=== PATIENT | female | born 1990 | race Caucasian/White ===

== ENCOUNTER 2019-02-11 08:48 | Observation (INO) ==
[2019-02-11] MEDS ORDERED: *HR* LORazepam 0.5 MG TABLET PO ONE (09:09)
--- NOTE | 2019-02-11 09:13 | Emergency Department Note ---
Disposition Clinical Impression: Chest pain at rest Syncopal episodes Qualifiers: Syncope type: unspecified Qualified Code(s): R55 - Syncope and collapse Disposition: Admitted As Inpatient Referrals: NONE,PCP [Primary Care Provider] - Forms: ED Satisfaction Letter General Adult HPI - General Chief complaint: ED Chest Pain Stated complaint: Chest Pain Time Seen by Provider: 02/11/19 09:09 Source: patient Limitations: no limitations Nursing Notes Reviewed: Yes Vital Signs Reviewed: Yes - History of Present Illness HPI Narrative: 28-year-old female presents with chest pain. Patient stated it was the intermittent sharp pain in middle of the chest radiated to left shoulder for a week. It is associate with shortness breath, numbness in face and feet, dizziness. Patient reported 3 episodes of syncope in the past week. Patient stated the chest pain lasted from 10 minutes to one hour variously. Patient has a history of hypertension and anxiety. She is not taking any medication at this time. No family history of cardiac of early . Patient smokes cigarettes 1 pack a day for 15 years. Not on oral control. No history of blood clot. Onset (ago): week(s) (1) Location: chest Radiation: non-radiation Pain Scale: 8 - Related Data Home Medications Medication Instructions Recorded Confirmed Aspirin [Adult Aspirin] 81 mg PO DAILY 02/11/19 02/11/19 Allergies Allergy/AdvReac Type Severity Reaction Status Date / Time codeine AdvReac Vomiting Verified 10/26/18 13:56 Sulfa (Sulfonamide AdvReac See Verified 10/26/18 13:56 Antibiotics) Comments Constitutional: Denies: fever, chills Eyes: Denies: eye pain ENT ED: Denies: ear pain Cardiovascular: Reports: chest pain Respiratory: Denies: cough Gastrointestinal: Denies: abdominal pain Genitourinary: Denies: urgency Musculoskeletal: Denies: back pain Integumentary: Denies: rash Neurological: Denies: headache Psychiatric: Denies: anxiety Endocrine: Denies: fatigue Hematological/Lymphatic: Denies: easy bleeding Allergic/Immunologic: Denies: facial swelling Past Medical History - Past Medical History Medical history: Reports: non-contributory - Social History Smoking Status: Current every day smoker Smokeless Tobacco Status: No Alcohol use: Reports: none Drug use: Reports: none Physical Exam - General Limitations: no limitations General appearance: alert, in no apparent distress - Head Head exam: atraumatic - Eye Eye exam: Present: normal appearance - ENT ENT exam: normal exam - Neck Neck exam: Present: normal inspection - Chest Chest inspection: Present: normal inspection, symmetric chest wall rise, tenderness (sternal area tender to palpation) - Respiratory Respiratory exam: Present: normal lung sounds bilaterally. Absent: respiratory distress, wheezes - Cardiovascular Cardiovascular exam: Present: regular rate - Abdominal Exam Abdominal exam: Present: soft, Non-Tender - Extremities Exam Extremities exam: Present: normal inspection, full ROM. Absent: tenderness - Back Exam Back exam: Present: normal inspection, full ROM. Absent: tenderness - Neurological Exam Neurological exam: Present: alert, oriented X3, CN II-XII intact, normal gait. Absent: motor sensory deficit - Psychiatric Psychiatric exam: Present: normal affect, normal mood - Skin Skin exam: Present: warm, intact Course Vital Signs Temperature 97.6 F 02/11/19 08:52 Pulse Rate 84 02/11/19 08:52 Respiratory Rate 18 02/11/19 08:52 Blood Pressure 127/85 02/11/19 08:52 O2 Sat by Pulse Oximetry 100 02/11/19 08:52 Temperature 97.6 F 02/11/19 08:52 Pulse Rate 86 02/11/19 10:48 Respiratory Rate 16 02/11/19 10:48 Blood Pressure 119/82 02/11/19 10:48 O2 Sat by Pulse Oximetry 98 02/11/19 10:48 Oxygen Delivery Oxygen Delivery Room Air Medical Decision Making - [facility] Narrative Medical decision making narrative: 28 year old female presents with chest pain and syncope. Pt reported intermittent sharp pain in middle of chest for a week. Associate with shortness of breath, numbness of face and feet, and dizziness. Pt reported three syncope episodes. no family history of cardiac early . No history of blood clot. Labs: negative troponin, BNP and d-dimer. EKG normal. But Nurse caught transit V-tach in monitor before pt's name is in system. Impression: chest pain and syncope. Dr. Wallace has seen the patient and agrees to admit patient for observation. 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 - Lab Data Lab results reviewed: Yes I reviewed the patient's lab results. Result diagrams: 02/11/19 09:31 02/11/19 09:31 Lab Results 02/11/19 02/11/1902/11/19 Range/Units 09:31 09:31 09:31 WBC 7.9 (4.3-11.1) K/mcL RBC 5.05 H (3.82-4.97) M/mcL Hgb 15.3 (11.5-15.4) g/dL Hct 43.5 (35.3-44.9) % MCV 86.1 (83.0-100.0) fL MCH 30.3 (28.0-33.3) pg MCHC 35.2 (31.6-35.5) g/dL RDW 12.4 (11.5-14.5) % Plt Count 255 (140-400) K/mcL MPV 10.2 (9.4-12.4) fL Immature Gran % 0.4 (0-4) % Seg Neutrophils % 52.2 % Lymphocytes % 39.1 % Monocytes % 6.3 % Eosinophils % 1.5 % Basophils % 0.5 % Neutrophils # 4.1 (1.6-8.9) K/mcL Lymphocytes # 3.1 (0.6-4.6) K/mcL Monocytes # 0.5 (0.0-1.3) K/mcL Eosinophils # 0.1 (0.0-0.6) K/mcL Basophils # 0.0 (0.0-0.2) K/mcL PT 11.4 (9.4-12.1) Seconds INR 1.0 D-Dimer 291 (0-500) ng/mLFEU Sodium 137 (136-145) mEq/L Potassium 3.4 L (3.5-5.1) mEq/L Chloride 105 (98-107) mEq/L Carbon Dioxide 21 L (23-29) mEq/L BUN 8 (6-20) mg/dL Creatinine 0.63 (0.60-1.20) mg/dL Est GFR ( Amer) > 60 (> 60) Est GFR (Non-Af Amer) > 60 (> 60) BUN/Creatinine Ratio 13 (6-26) Glucose 98 (70-105) mg/dL Calculated Osmolality 282 (280-300) Calcium 9.8 (8.6-10.3) mg/dL Troponin I < 0.03 (< 0.04) ng/mL B-Natriuretic Peptide (Less than 100) pg/mL Urine Color (Yellow) Urine Clarity (Clear) Urine pH (5.0-8.0) pH Units Ur Specific [place] (1.010-1.025) Urine Protein (Neg-Trace) mg/dL Urine Glucose (UA) (Normal) mg/dL Urine Ketones (Negative) mg/dL Urine Blood (Negative) Urine Nitrite (Negative) Urine Bilirubin (Negative) Urine Urobilinogen (Normal) mg/dL Ur Leukocyte Esterase (Negative) Urine Microscopic RBC (0-3) per hpf Urine Microscopic WBC (0-3) per hpf Ur Squamous Epith Cells (None-Few) per lpf Urine Bacteria (None-Few) per hpf Hyaline Casts (None-Few) per lpf Ur Culture Indicated? (NO) Urine Test (Negative) Urine Opiates Screen (Ladqoj=798) ng/mL Ur Barbiturates Screen (Gumvcc=131) ng/mL Ur Phencyclidine Scrn (Cutoff=25) ng/mL Ur Amphetamines Screen (Ljzspj=9655) ng/mL U Benzodiazepines Scrn (Htavza=161) ng/mL Urine Cocaine Screen (Cutoff= 300) ng/mL U Marijuana (THC) Screen (Cutoff = 50) ng/mL Ur Drug Screen Interp 02/11/19 02/11/19 02/11/19 Range/Units 09:31 10:27 10:27 WBC (4.3-11.1) K/mcL RBC (3.82-4.97) M/mcL Hgb (11.5-15.4) g/dL Hct (35.3-44.9) % MCV (83.0-100.0) fL MCH (28.0-33.3) pg MCHC (31.6-35.5) g/dL RDW (11.5-14.5) % Plt Count (140-400) K/mcL MPV (9.4-12.4) fL Immature Gran % (0-4) % Seg Neutrophils % % Lymphocytes % % Monocytes % % Eosinophils % % Basophils % % Neutrophils # (1.6-8.9) K/mcL Lymphocytes # (0.6-4.6) K/mcL Monocytes # (0.0-1.3) K/mcL Eosinophils # (0.0-0.6) K/mcL Basophils # (0.0-0.2) K/mcL PT (9.4-12.1) Seconds INR D-Dimer (0-500) ng/mLFEU Sodium (136-145) mEq/L Potassium (3.5-5.1) mEq/L Chloride (98-107) mEq/L Carbon Dioxide (23-29) mEq/L BUN (6-20) mg/dL Creatinine (0.60-1.20) mg/dL Est GFR ( Amer) (> 60) Est GFR (Non-Af Amer) (> 60) BUN/Creatinine Ratio (6-26) Glucose (70-105) mg/dL Calculated Osmolality (280-300) Calcium (8.6-10.3) mg/dL Troponin I (< 0.04) ng/mL B-Natriuretic Peptide 22 (Less than 100) pg/mL Urine Color Yellow (Yellow) Urine Clarity Cloudy A (Clear) Urine pH 7.0 (5.0-8.0) pH Units Ur Specific [place] < 1.005 L (1.010-1.025) Urine Protein Negative (Neg-Trace) mg/dL Urine Glucose (UA) Normal (Normal) mg/dL Urine Ketones Negative (Negative) mg/dL Urine Blood Negative (Negative) Urine Nitrite Negative (Negative) Urine Bilirubin Negative (Negative) Urine Urobilinogen Normal (Normal) mg/dL Ur Leukocyte Esterase Negative (Negative) Urine Microscopic RBC 0-3 (0-3) per hpf Urine Microscopic WBC 0-3 (0-3) per hpf Ur Squamous Epith Cells Many H (None-Few) per lpf Urine Bacteria None Seen (None-Few) per hpf Hyaline Casts None Seen (None-Few) per lpf Ur Culture Indicated? NO (NO) Urine Test (Negative) Urine Opiates Screen Negative (Hpzwdw=693) ng/mL Ur Barbiturates Screen Negative (Znjkff=502) ng/mL Ur Phencyclidine Scrn Negative (Cutoff=25) ng/mL Ur Amphetamines Screen Negative (Yemkvp=8457) ng/mL U Benzodiazepines Scrn Negative (Fncpqu=569) ng/mL Urine Cocaine Screen Negative (Cutoff= 300) ng/mL U Marijuana (THC) Screen Negative (Cutoff = 50) ng/mL Ur Drug Screen Interp See Below 02/11/19 Range/Units 10:27 WBC (4.3-11.1) K/mcL RBC (3.82-4.97) M/mcL Hgb (11.5-15.4) g/dL Hct (35.3-44.9) % MCV (83.0-100.0) fL MCH (28.0-33.3) pg MCHC (31.6-35.5) g/dL RDW (11.5-14.5) % Plt Count (140-400) K/mcL MPV (9.4-12.4) fL Immature Gran % (0-4) % Seg Neutrophils % % Lymphocytes % % Monocytes % % Eosinophils % % Basophils % % Neutrophils # (1.6-8.9) K/mcL Lymphocytes # (0.6-4.6) K/mcL Monocytes # (0.0-1.3) K/mcL Eosinophils # (0.0-0.6) K/mcL Basophils # (0.0-0.2) K/mcL PT (9.4-12.1) Seconds INR D-Dimer (0-500) ng/mLFEU Sodium (136-145) mEq/L Potassium (3.5-5.1) mEq/L Chloride (98-107) mEq/L Carbon Dioxide (23-29) mEq/L BUN (6-20) mg/dL Creatinine (0.60-1.20) mg/dL Est GFR ( Amer) (> 60) Est GFR (Non-Af Amer) (> 60) BUN/Creatinine Ratio (6-26) Glucose (70-105) mg/dL Calculated Osmolality (280-300) Calcium (8.6-10.3) mg/dL Troponin I (< 0.04) ng/mL B-Natriuretic Peptide (Less than 100) pg/mL Urine Color (Yellow) Urine Clarity (Clear) Urine pH (5.0-8.0) pH Units Ur Specific [place] (1.010-1.025) Urine Protein (Neg-Trace) mg/dL Urine Glucose (UA) (Normal) mg/dL Urine Ketones (Negative) mg/dL Urine Blood (Negative) Urine Nitrite (Negative) Urine Bilirubin (Negative) Urine Urobilinogen (Normal) mg/dL Ur Leukocyte Esterase (Negative) Urine Microscopic RBC (0-3) per hpf Urine Microscopic WBC (0-3) per hpf Ur Squamous Epith Cells (None-Few) per lpf Urine Bacteria (None-Few) per hpf Hyaline Casts (None-Few) per lpf Ur Culture Indicated? (NO) Urine Test Negative (Negative) Urine Opiates Screen (Ylniad=709) ng/mL Ur Barbiturates Screen (Vdmsyl=163) ng/mL Ur Phencyclidine Scrn (Cutoff=25) ng/mL Ur Amphetamines Screen (Dhewng=8207) ng/mL U Benzodiazepines Scrn (Vpmqho=460) ng/mL Urine Cocaine Screen (Cutoff= 300) ng/mL U Marijuana (THC) Screen (Cutoff = 50) ng/mL Ur Drug Screen Interp - Radiology Data Radiology results reviewed: Yes I reviewed the patient's radiology results. EXAMINATION: SINGLE XRAY VIEW OF THE CHEST 02/11/2019 9:46 am COMPARISON: None. HISTORY: ORDERING SYSTEM PROVIDED HISTORY: chest pain Initial evaluation of acute chest pain FINDINGS: Trachea is essentially midline. No lung infiltrate or consolidation. No pneumothorax or pleural effusion. Heart size is normal. XR/XR chest 1V portable IMPRESSION: No acute abnormality. D/ / Mick Triplett MD / Mick Triplett MD Interpreting Provider: Mick Triplett MD Critical Care Time Critical Care Time: Yes Total Critical Care Time: 35 Attestation: I critical care time was 35 minutes managing patient's symptoms and tachycardia and possible V. tach. Attestation Statement - Attestation Attestation: Patient was seen in cooperation with physician management assistant. I reviewed the history physical assessment and plan, and agree with the findings. I also had personal [id number] time with an evaluated this patient. 28-year-old female presents emergency Department with a variety of complaints including chest pain syncopal episodes and dizziness. Also with some pain on inspiration. Patient states the pain has been ongoing for some time. She said she is being worked up by her primary care doctor is been unable to find anything. The pain is midsternal radiates outward its a dull sensation. It also hurts when you push on the chest but this is different than the other chest pain. Patient states she has had syncopal episodes for approximately 10 years. She is not sure if she is . Review systems as above remainder negative. Physical exam vital signs were stable. ENT is unremarkable. Heart regular rhythm rate lungs clear. Abdomen is soft and nontender. Extremities unremarkable. Neurologically intact pre-and skin no rashes. Psych anxious. ED course. Patient was placed on a monitor EKG showed no acute ischemic changes. However on the monitor patient had a run of V. tach. We are unable to (unfortunately. However considering her history of syncope and chest pain with this potential run of V. tach patient required admission. Hemodynamically she remained stable in the emergency department. I agree with the physician management assistant assessment and plan.
[2019-02-11 09:49] LABS: Basophils % 0.5 %; Eosinophils # 0.1 K/mcL (0.0-0.6); Eosinophils % 1.5 %; Hematocrit 43.5 % (35.3-44.9); Hemoglobin 15.3 g/dL (11.5-15.4); Immature Granulocytes % 0.4 % (0-4); Lymphocytes # 3.1 K/mcL (0.6-4.6); Lymphocytes % 39.1 %; Mean Corpuscular HGB Conc 35.2 g/dL (31.6-35.5); Mean Corpuscular Hemoglobin 30.3 pg (28.0-33.3); Mean Corpuscular Volume 86.1 fL (83.0-100.0); Mean Platelet Volume 10.2 fL (9.4-12.4); Monocytes # 0.5 K/mcL (0.0-1.3); Monocytes % 6.3 %; Neutrophils # 4.1 K/mcL (1.6-8.9); Platelet Count 255 K/mcL (140-400); Red Blood Count 5.05 M/mcL (3.82-4.97); Red Cell Distribution Width 12.4 % (11.5-14.5); Segmented Neutrophils % 52.2 %
[2019-02-11 10:00] LABS: Prothrombin Time 11.4 Seconds (9.4-12.1)
[2019-02-11 10:09] LABS: BUN/Creatinine Ratio 13 (6-26); Blood Urea Nitrogen 8 mg/dL (6-20); Calcium 9.8 mg/dL (8.6-10.3); Carbon Dioxide 21 mEq/L (23-29); Chloride 105 mEq/L (98-107); Glucose 98 mg/dL (70-105); Osmolality,Calculated 282 (280-300); Potassium 3.4 mEq/L (3.5-5.1); Sodium 137 mEq/L (136-145); Troponin I < 0.03 ng/mL (< 0.04); eGFR For Non-African Americans > 60 (> 60)
[2019-02-11 10:39] LABS: Bilirubin,Urine Negative (Negative); Blood,Urine Negative (Negative); Clarity,Urine Cloudy (Clear); Color,Urine Yellow (Yellow); Glucose,Urine (UA) Normal (Normal); Ketones,Urine Negative (Negative); Leukocyte Esterase,Urine Negative (Negative); Nitrite,Urine Negative (Negative); Protein,Urine Negative (Neg-Trace); Specific Gravity,Urine < 1.005 (1.010-1.025); Urobilinogen,Urine Normal (Normal)
[2019-02-11 10:40] LABS: Bacteria,Urine None Seen per hpf (None-Few); Hyaline Casts,Urine None Seen per lpf (None-Few); Squamous Epithelial Cell,Urine Many per lpf (None-Few); WBC,Urine 0-3 per hpf (0-3)
[2019-02-11 10:46] LABS: Amphetamine Screen,Urine Negative ng/mL (Cutoff=1000); Barbiturate Screen,Urine Negative ng/mL (Cutoff=200); Benzodiazepines Screen,Urine Negative ng/mL (Cutoff=200); Cannabinoid Screen,Urine Negative ng/mL (Cutoff = 50); Cocaine Screen,Urine Negative ng/mL (Cutoff= 300); Opiate Screen,Urine Negative ng/mL (Cutoff=300); Phencyclidine Screen,Urine Negative ng/mL (Cutoff=25)
[2019-02-11] MEDS ORDERED: Naloxone 0.4 MG/ML INJ IVP PRN (10:54)
[2019-02-11 10:55] LABS: RBC,Urine 0-3 per hpf (0-3)
--- NOTE | 2019-02-11 11:01 | Internal Med History&Physical ---
Date of Encounter: 02/11/19 Time of Encounter: 10:58 Internal Medicine - H&P: HPI Chief complaint: chest pain Admitted From: Home Plans for Post Hospital Care: Home History of present illness: Ms. Weaver is a 28 year old female with no significant PMHx presented to the ED with complaint of chest pain. 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 chest pain self resolved after a few minutes. she did experience tingling of her fingers while she had chest pain. she denies orthopnea, PND. she cannot recall alleviating or aggravating factors. chest pain occurs both at rest and on ambulation. in addition to above she also endorses many years of syncopal episodes that lasts only a few minutes. she has been following with Dr. Barragan as Op and has had extensive work up such as EEG, tilt table, stress test and holter monitoring however no cause has been found. last episode was this week. as per sister at bedside she "passes out" does not respond for 2 minutes and then she is extremely fatigues for the rest of the day. she cannot recall the episodes. she denies incontinence or abnormal shaking of her extremities. she has not been p laced on seizure medications. she is a current every day smoker 1 ppd for 15 years. while in the ED prior to printing the EKG the tech had noticed ?NSVT as per ED physician- however no records available. she was endorsed for admission for chest pain. Past Med Surg Social Fam HX - Past Medical History Medical history: non-contributory Additional medical history: syncopal episodes - Past Surgical History Additional surgical history: ear tubes, wisdom teeth, LEEP, cyst off chin - Social History Smoking Status: Current every day smoker Smokeless Tobacco Status: No Alcohol use: none Drug use: none Internal Medicine - H&P: Meds Aspirin [Adult Aspirin] 81 mg PO DAILY 02/11/19 [History] Allergy/AdvReac Type Severity Reaction Status Date / Time codeine AdvReac Vomiting Verified 10/26/18 13:56 Sulfa (Sulfonamide AdvReac See Verified 10/26/18 13:56 Antibiotics) Comments All Systems PM: A 10-system review of systems was performed and is negative for pertinent findings except as documented above in the HPI. - Constitutional Vitals: Temp Pulse Resp BP Pulse Ox 97.6 F 86 16 119/82 98 02/11/19 08:52 02/11/19 10:48 02/11/19 10:48 02/11/19 10:48 02/11/19 10:48 Exam: General: Patient is alert, oriented, no acute distress, obese Head: atraumatic, normocephalic, Eye: normal appearance, PERRL, no scleral icterus, no conjunctival injection ENT: mucous membranes moist, normal external ear exam Neck: normal inspection, trachea midline, full ROM, no carotid bruits Chest: normal inspection, symmetric chest rise Respiratory: Good respiratory effort. Bilateral breath sounds are clear without wheezing, crackles, or rhonchi. Cardiovascular: Regular rate and rhythm. s1 and s2 No clicks, rubs, gallops, or murmors. Abdomen: Bowel sounds present normoactive x-4 quadrants. Abdomen is soft, nondistended. no Epigastric tenderness. No guarding or rebound. No organomegaly noted, obese musculoskeletal: Spontaneously moving all extremities. no edema, no calf tenderness Skin: warm, dry, intact. Neuro: Alert and oriented x4. Sensation light touch intact. Cranial nerves 2- 12 is intact. Not aphasic, rapid hand movements intact, [id number] intact, Psych: Patient's affect is normal Internal Med - H&P Results - Labs CBC & Chem 7: 02/11/19 09:31 02/11/19 09:31 Labs: Short CBC 02/11/19 Range/Units 09:31 WBC 7.9 (4.3-11.1) K/mcL Hgb 15.3 (11.5-15.4) g/dL Hct 43.5 (35.3-44.9) % Plt Count 255 (140-400) K/mcL Neutrophils # 4.1 (1.6-8.9) K/mcL BMP 02/11/19 09:31 Sodium 137 Potassium 3.4 L Chloride 105 Carbon Dioxide 21 L BUN 8 Creatinine 0.63 Glucose 98 Calcium 9.8 Cardiac Enzymes 02/11/19 Range/Units 09:31 Troponin I < 0.03 (< 0.04) ng/mL Urine 02/11/19 Range/Units 10:27 Urine Color Yellow (Yellow) Urine Clarity Cloudy A (Clear) Urine pH 7.0 (5.0-8.0) pH Units Ur Specific [place] < 1.005 L (1.010-1.025) Urine Protein Negative (Neg-Trace) mg/dL Urine Glucose (UA) Normal (Normal) mg/dL - Impressions ITS Impressions Chest X-Ray 02/11/19 08:55 IMPRESSION: No acute abnormality. D/ / Mick Triplett MD / Mick Triplett MD Interpreting Provider: Mick Triplett MD - Assessment and Plan (1) Chest pain Current Visit: Yes Status: Acute Assessment and plan: chest pain doubt ACS but will rule out, ? prinzmental angina (smoker) telemetry ASA [address] head is negative Follow serial troponin/CK-MB/EKG Transthoracic echocardiograph to identify regional wall motion abnormalities and assess LV function NTG Q5M PRN Utox lipid panel, TSH had stress test in 08/09/18- reports it was negative- no report in chart CXR: No acute abnormality. Qualifiers: Chest pain type: precordial pain Qualified Code(s): R07.2 - Precordial pain (2) Syncopal episodes Current Visit: Yes Status: Acute Assessment and plan: syncope rule out arrhythmia vs seizures has had extensive work up as OP- results below as per ED technology coordinator she had ? NSVT- however was unable to print rhythm . will most likely need loop recorder vs EP consult as Holter showed Max HR of 160 CT head stat follows with Dr. Barragan ( neurology as Op) - consider consulting neurology and having EEG repeated/ refer for video EEG cardiac monitoring Echocardiogram continue to follow troponins and EKG fall precautions Check orthostatic pressure TSH replaced potassium and keep level >4 magnesium level ordered keep level >2 IVF NS at 84 mL/hrs Ativan 2mg PRN for seizure activity aspiration, fall, seizure precaution. HOlter monitoring jun 2018: Baseline sinus rhythm with circadian variation and sporadic tachycardic spikes. Max HR 160 bpm 6:20AM first moring of monitoring. Rare PVCs and PACs. No diary entry. Tilt table 08/09/18 - negative stress test 08/09/18- results not in chart MRI head 08/09/18 : IMPRESSION: No structural brain abnormality. EEG 08/09/18- Impression: This is a normal awake and asleep 48 hour ambulatory EEG. No spells or seizure like activity captured. However, excessive eye blinking noted during wakefulness. Qualifiers: Syncope type: unspecified Qualified Code(s): R55 - Syncope and collapse (3) Hypokalemia Current Visit: Yes Status: Acute Assessment and plan: replaced- follow in AM magnesium level ordered (4) Current every day smoker Current Visit: Yes Status: Acute Assessment and plan: was counseled (5) Obesity (BMI 30.0-34.9) Current Visit: Yes Status: Acute Assessment and plan: was counseled (6) DVT prophylaxis Current Visit: Yes Status: Acute Assessment and plan: heparin sc - Time Spent With Patient Total time spent is greater than 50% in coordination of care (as documented) at patient's floor/unit and/or counseling patient:
[2019-02-11] MEDS ORDERED: Nitroglycerin 0.4 MG TAB.SUBL SL PRN (11:11)
[2019-02-11] MEDS ORDERED: 0.9 % Sodium Chloride 1,000 ML IVC SCH (11:15)
[2019-02-11 12:06] LABS: Chol/HDL Ratio 2.3 (0-4.9); Magnesium 1.8 mg/dL (1.6-2.6); Phosphorous 3.6 mg/dL (2.7-4.5)
[2019-02-11] MEDS ORDERED: Aspirin 325 MG TABLET PO ONE (12:08)
[2019-02-11] MEDS: *HR* Heparin 5,000 UNIT/ML VIAL SQ SCH ×2 (12:48→22:16)
[2019-02-11] MEDS ORDERED: Perflutren Lipid Microsphere 1.3 ML in 0.9 % Sodium Chloride 8.7 ML IVP ONE (14:33)
[2019-02-11] MEDS ORDERED: Perflutren Lipid Microsphere 2 ML VIAL ONE (14:36)
[2019-02-11] MEDS ORDERED: Nicotine 21 MG PATCH.TD24 TD PRN (17:09)
[2019-02-12] MEDS: *HR* Heparin 5,000 UNIT/ML VIAL SQ SCH (05:28)
[2019-02-12 06:34] LABS: Basophils % 0.5 %; Eosinophils # 0.2 K/mcL (0.0-0.6); Eosinophils % 2.5 %; Hematocrit 41.8 % (35.3-44.9); Hemoglobin 14.1 g/dL (11.5-15.4); Immature Granulocytes % 0.3 % (0-4); Lymphocytes # 2.7 K/mcL (0.6-4.6); Lymphocytes % 35.9 %; Mean Corpuscular HGB Conc 33.7 g/dL (31.6-35.5); Mean Corpuscular Hemoglobin 29.9 pg (28.0-33.3); Mean Corpuscular Volume 88.7 fL (83.0-100.0); Mean Platelet Volume 10.1 fL (9.4-12.4); Monocytes # 0.5 K/mcL (0.0-1.3); Monocytes % 7.1 %; Neutrophils # 4.1 K/mcL (1.6-8.9); Platelet Count 226 K/mcL (140-400); Red Blood Count 4.71 M/mcL (3.82-4.97); Red Cell Distribution Width 12.7 % (11.5-14.5); Segmented Neutrophils % 53.7 %
[2019-02-12 06:52] LABS: BUN/Creatinine Ratio 19 (6-26); Blood Urea Nitrogen 12 mg/dL (6-20); Calcium 9.2 mg/dL (8.6-10.3); Carbon Dioxide 23 mEq/L (23-29); Chloride 110 mEq/L (98-107); Glucose 103 mg/dL (70-105); Osmolality,Calculated 288 (280-300); Potassium 4.2 mEq/L (3.5-5.1); Sodium 139 mEq/L (136-145); eGFR For Non-African Americans > 60 (> 60)
[2019-02-12 07:27] VITALS: BP 109/74
[2019-02-12] MEDS ORDERED: Aspirin Enteric Coated 81 MG Tablet PO SCH (09:00)
--- NOTE | 2019-02-12 10:42 | Discharge Summary ---
- NOTES TO OUTPATIENT PROVIDER Notes to Outpatient Provider: Follow with PCP in one week. Please go for outpatient stress test through your primary care doctor. Please quit smoking Orders not resulted at time of discharge: Pending orders 02/11/19 15:00 ECG 12 lead ECG [ECG] Routine 02/12/19 09:30 NM elizabeth perf SPECT multi [NM] Routine SP exercise nuclear stress Routine Date of Encounter: 02/12/19 Time of Encounter: 10:40 - Discharge Diagnosis (1) Chest pain Priority: Primary Status: Acute Qualifiers: Chest pain type: precordial pain Qualified Code(s): R07.2 - Precordial pain (2) Syncopal episodes Priority: Secondary Status: Acute Qualifiers: Syncope type: unspecified Qualified Code(s): R55 - Syncope and collapse (3) Current every day smoker Priority: Secondary Status: Acute (4) Hypokalemia Priority: Secondary Status: Acute (5) DVT prophylaxis Priority: Secondary Status: Acute (6) Obesity (BMI 30.0-34.9) Priority: Secondary Status: Acute Hospital course: Ms. Weaver is a 28 year old female with recent frequent syncopal episodes, intermittent chest pain and chronic tobacco dependence pt presented to the ED with complaint of chest pain. 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 chest pain self resolved after a few minutes. In addition to above she also mentioned many years of syncopal episodes that lasts only a few minutes. she has [facility] and has had extensive work up such as EEG, tilt table, and holter monitoring however no cause has been found. She was admitted in the hospital and placed on conveyor monitor. Her EKG did not show any acute ischemic changes. Her serial troponin came back as negative. Her echocardiogram showed preserved LVEF mild TR no PFO and no pulmonary hypertension noticed. I did request patient to go for stress test as part of cardiac ischemic work up. Pt wanted to have it done as an out pt through her PCP. She denied any active CP now. Counseled to quit smoking. - Time Spent with Patient Total time spent providing and/or coordinating discharge services: - Discharge Medications Prescriptions: No Action Aspirin [Adult Aspirin] 81 mg PO DAILY Home Medications: Aspirin [Adult Aspirin] 81 mg PO DAILY 02/11/19 [History] Allergies/Adverse Reactions: Allergy/AdvReac Type Severity Reaction Status Date / Time codeine AdvReac Vomiting Verified 10/26/18 13:56 Sulfa (Sulfonamide AdvReac See Verified 10/26/18 13:56 Antibiotics) Comments Date of admission: 02/11/19 11:09 Primary care physician: PCP NONE - Constitutional Vitals: Temp Pulse Resp BP Pulse Ox 98.3 F 74 20 109/74 99 02/12/19 07:24 02/12/19 07:24 02/12/19 07:24 02/12/19 07:24 02/12/19 07:24 General appearance: Present: A&O X 3, no acute distress, answers questions appropriately Exam: Gen: Alert, awake, Oriented to time,place and person Chest: Diminished breath sounds B/L, No wheezing, No crackles, No rales Heart: S1S2+ RRR No murmurs Abd: Soft, NT, BS +, No organomegaly Ext: No edema, pulses are palpable, No calf tenderness Neuro : Benign findings Skin: No rash. - Patient Status Disposition: Home, Self-Care Condition: Good - Discharge Instructions Follow Up With: Mirian Cruz [Resident] - 02/20/19 1:00 pm - Diet and Activity Activity: increase activity as tolerated Diet: low salt diet
--- NOTE | 2019-02-15 11:23 | Electrocardiograph Report ---
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
== END 2019-02-12 11:37 | disposition home or self-care (01) ==
LOC: EMEROOARM 08:48 → 3BNU 08:48 → SUATTDRO 11:09 → 3BNU 11:44
PROVIDERS: ADMIT Internal Medicine; ATTEND Family Medicine